=== PATIENT | male | born 1995 | race Caucasian/White ===

== ENCOUNTER 2019-06-02 16:14 | Emergency (ER) | payer BC, OTHER, SELFPAY ==
[2019-06-02 16:24] VITALS: BP 142/75; PULSE 87; RESP 20; TEMP 36.7; O2SAT 99
--- NOTE | 2019-06-02 17:23 | ED.URI ---
HPI - URI/Sore Throat General Chief Complaint: Upper Respiratory Infection Stated Complaint: cough with pain Time Seen by Provider: 06/02/19 17:13 Source: patient and RN notes reviewed Mode of arrival: ambulatory Limitations: no limitations History of Present Illness HPI Narrative: 23-year-old male presents with concern for cough, mid chest pain with coughing. Denies chest pain at rest. Denies shortness of breath, diaphoresis. Reports his girlfriend was recently diagnosed with influenza. Denies taking any medications for his symptoms. MD elicited complaint: cough Related Data Home Medications Medication Instructions Recorded Confirmed budesonide 3 mg PO DAILY 06/02/19 06/02/19 cetirizine [Zyrtec] 10 mg PO DAILY 06/02/19 06/02/19 fluticasone furoate-vilanterol 1 inh INHALATION DAILY 06/02/19 06/02/19 [Breo Ellipta] nystatin 100,000 unit PO QID 06/02/19 06/02/19 topiramate 50 mg PO BID 06/02/19 06/02/19 Allergies Allergy/AdvReac Type Severity Reaction Status Date / Time No Known Allergies Allergy Verified 06/02/19 16:48 Review of Systems Review of Systems: Narrative: CONSTITUTIONAL: Denies malaise, chills, sweats, or fever. EYES: Denies visual changes, redness, or discharge. ENT: Reports rhinorrhea. Denies congestion, sinus pain, otalgia and sore throat. CARDIOVASCULAR: Denies chest pain, palpitations, or edema. RESPIRATORY: Reports cough, mid chest pain with coughing. Denies dyspnea. GASTROINTESTINAL: Denies abdominal pain, nausea, vomiting, diarrhea SKIN: Denies rash or itching. MUSCULOSKELETAL: Denies myalgia. NEUROLOGIC: Denies headache. All systems reviewed & are unremarkable except as noted in HPI and below PMFSH Comments At time of signature, agree with nursing past medical, surgical, social and family history. There is no relevant family history pertinent to the presenting complaint Exam Narrative: Exam Narrative: GENERAL: Well-appearing, well-nourished, and in no acute distress. HEAD: Normocephalic EYES: PERRLA, conjunctivae clear ENT: Nares clear, turbinates erythematous, clear discharge. Mucous membranes moist. TM pearly malagon with sharp light reflex bilaterally; no tragal tenderness. Oropharynx not erythematous without lesions. Tonsils not enlarged and without exudate, no drooling, no hoarseness, no trismus. NECK: Supple. No lymphadenopathy CHEST: Clear to auscultation, breath sounds equal. No wheezing, rhonchi, rales, or stridor. No respiratory distress, speaks in full sentences. HEART: Regular rate and rhythm. No murmur heard. Normal peripheral pulses. SKIN: Warm, dry, no rash. NEURO: Alert and oriented x3. PSYCH: Normal mood and affect Course Course Emergency Course: Patient is aware of diagnosis, understands and agrees to treatment plan. Anticipatory guidance given. Patient agrees to follow-up as directed and is aware of reasons to seek care at the emergency department. Portions of this record may have been created with voice recognition software Vital Signs Vital signs: Vital Signs Temperature 98.1 F 06/02/19 16:24 Pulse Rate 87 06/02/19 16:24 Respiratory Rate 20 06/02/19 16:24 Blood Pressure 142/75 H 06/02/19 16:24 Pulse Oximetry 99 06/02/19 16:24 Temperature 98.1 F 06/02/19 16:24 Pulse Rate 87 06/02/19 16:24 Respiratory Rate 20 06/02/19 16:24 Blood Pressure 142/75 H 06/02/19 16:24 Pulse Oximetry 99 06/02/19 16:24 Reviewed. Pt has been instructed to follow up with his primary care provider within the next week regarding his elevated blood pressure today. MDM - URI/Sore Throat MDM Narrative Medical decision making narrative: Differential diagnosis considered: Strep pharyngitis, allergic rhinitis, upper respiratory tract infection, sinusitis, rhinosinusitis, nasopharyngitis. viral pharyngitis, otitis media, otitis externa, pneumonia, bronchitis, viral cough syndrome, viral syndrome, and influenza. Exam findings show no acute concerns or changes; patient
== END 2019-06-02 17:40 | disposition home or self-care (01) ==
PROVIDERS: Emergency Provider Nurse Practitioner; PCP Emergency Medicine
DX: J40 Bronchitis, not specified as acute or chronic (principal); J45.909 Unspecified asthma, uncomplicated; K50.90 Crohn's disease, unspecified, without complications
CPT/HCPCS: 87804; 99213; G0463

== ENCOUNTER 2019-06-22 10:43 | Outpatient (CLI) | payer BC, OTHER, SELFPAY ==
--- NOTE | 2019-06-24 16:14 | WPDHOLTEREM ---
Holter/Event Monitor Holter/Event Monitor Date of procedure: 06/22/19 Procedure Type: 48 hour holter monitor Indications: Palpitations Conclusion: 1. 48 hour holter monitor on 06/22/19. 2. Underlying rhythm is sinus rhythm with sinus arrhythmia. HR range 42-132 bpm; average HR 74 bpm. 3. No premature supraventricular complexes. No supraventricular tachycardia. 4. There is one premature ventricular complex. No ventricular tachycardia. 5. No sinoatrial or atrioventricular blocks. No significant pauses greater than 2 seconds. 6. Patient reports symptoms of heart felt weird, chest pain which demonstrate sinus rhythm, HR range 57-103 bpm.
== END 2019-06-22 10:44 | disposition home or self-care (01) ==
PROVIDERS: PCP Emergency Medicine; Visit Provider Internal Medicine Cardiovascular Disease
DX: R00.2 Palpitations (principal)
CPT/HCPCS: 93225; 93226

== ENCOUNTER → 2019-11-18 14:46 | Outpatient (CLI) | payer BC, OTHER, SELFPAY ==
--- NOTE | ~2019-11-18 | US_ITS ---
EXAMINATION: US soft tissue head and neck DATE: 11/18/2019 14:58 INDICATION: Left neck swelling, lump, and pain. TECHNIQUE: Multiple grayscale and Doppler ultrasound images of the left neck were obtained. COMPARISON: None FINDINGS: There is no abnormal mass or lymphadenopathy in the patient's area of concern in left neck. IMPRESSION: 1. No abnormal mass or lymphadenopathy in the patient's area of concern in left neck. Reviewed, dictated and finalized at location B.
== END ==
PROVIDERS: PCP Emergency Medicine; Visit Provider Emergency Medicine
DX: R59.1 Generalized enlarged lymph nodes (principal)
CPT/HCPCS: 76536

== ENCOUNTER 2019-12-02 10:56 | Outpatient (CLI) | payer BC, OTHER, SELFPAY ==
--- NOTE | 2019-12-02 11:07 | EST_ITS ---
Patient Info Name: Teddy Zhang Age: 24 years : 1995 Gender: Male Ht: 74 in Wt: 215 lbs BSA: 2.27 m2 Exam Date: 12/02/2019 11:15 AM Exam Location: [facility] Stress Patient Status: Outpatient Admit Date: 12/02/2019 Staff Ordering Physician: Shawn Daily DO Attending Provider: Shawn Daily DO Exercise Technologist: Ester Banda RDCS Exercise Physician: Shawn Daily DO Exam Type: CA stress test treadmill Study Info Indications R07.9 - Chest pain, unspecified A treadmill exercise stress test was performed. Summary 1. 1. Negative Francisco J exercise stress test for ischemic ST changes by ECG criteria. 2. 2. Good functional capacity, achieving 12 METs of workload. 3. 3. Hypertensive response to exercise. 4. 4. Appropriate HR response to exercise. 5. 5. Appropriate HR recovery at 1 minute post exercise. 6. 6. No imaging with stress testing. 7. 7. Patient informed of the above results. Protocol: Francisco J Stress ECG Details Stage: REST Duration (min): 6 min : 27 sec Speed (mph): 0.0 Grade (%): 0 HR (bpm): 95 SBP (mmHg): 125 DBP (mmHg): 76 METS: --- Stage: REST Duration (min): 17 min : 49 sec Speed (mph): 0.0 Grade (%): 0 HR (bpm): 103 SBP (mmHg): 125 DBP (mmHg): 76 METS: --- Stage: STAGE 1 Duration (min): 1 min : 0 sec Speed (mph): 1.7 Grade (%): 10 HR (bpm): 117 SBP (mmHg): 125 DBP (mmHg): 76 METS: --- Stage: STAGE 1 Duration (min): 2 min : 0 sec Speed (mph): 1.7 Grade (%): 10 HR (bpm): 119 SBP (mmHg): 125 DBP (mmHg): 76 METS: --- Stage: STAGE 1 Duration (min): 3 min : 0 sec Speed (mph): 1.7 Grade (%): 10 HR (bpm): 116 SBP (mmHg): 123 DBP (mmHg): 67 METS: --- Stage: STAGE 2 Duration (min): 1 min : 0 sec Speed (mph): 2.5 Grade (%): 12 HR (bpm): 129 SBP (mmHg): 123 DBP (mmHg): 67 METS: --- Stage: STAGE 2 Duration (min): 2 min : 0 sec Speed (mph): 2.5 Grade (%): 12 HR (bpm): 128 SBP (mmHg): 140 DBP (mmHg): 66 METS: --- Stage: STAGE 2 Duration (min): 3 min : 0 sec Speed (mph): 2.5 Grade (%): 12 HR (bpm): 133 SBP (mmHg): 140 DBP (mmHg): 66 METS: --- Stage: STAGE 3 Duration (min): 1 min : 0 sec Speed (mph): 3.4 Grade (%): 14 HR (bpm): 145 SBP (mmHg): 157 DBP (mmHg): 65 METS: --- Stage: STAGE 3 Duration (min): 2 min : 0 sec Speed (mph): 3.4 Grade (%): 14 HR (bpm): 152 SBP (mmHg): 157 DBP (mmHg): 65 METS: --- Stage: STAGE 3 Duration (min): 3 min : 0 sec Speed (mph): 3.4 Grade (%): 14 HR (bpm): 155 SBP (mmHg): 184 DBP (mmHg): 59 METS: --- Stage: STAGE 4 Duration (min): 1 min : 0 sec Speed (mph): 4.2 Grade (%): 16 HR (bpm): 170 SBP (mmHg): 184 DBP (mmHg): 59 METS: --- Stage: STAGE 4 Duration
== END 2019-12-02 10:57 | disposition home or self-care (01) ==
PROVIDERS: PCP Emergency Medicine; Visit Provider Internal Medicine Cardiovascular Disease
DX: R07.9 Chest pain, unspecified (principal)
CPT/HCPCS: 93017

== ENCOUNTER → 2020-08-09 16:08 | Outpatient (CLI) | payer BC, OTHER, SELFPAY ==
--- NOTE | ~2020-08-09 | US_ITS ---
EXAMINATION: US thyroid DATE: 08/09/2020 16:29 INDICATION: Goiter. TECHNIQUE: Multiple ultrasound images of the thyroid were obtained. COMPARISON: None. FINDINGS: The right thyroid lobe measures 4.7 x 1.0 x 1.3 cm. The left thyroid lobe measures 5.3 x 1.2 x 1.4 c m. There is normal echotexture and echogenicity throughout the thyroid gland. No discrete nodules id entified. Normal vascular flow is present. IMPRESSION: 1. Normal pelvis. Reviewed, dictated and finalized at location A. IMPRESSION: 1. Normal pelvis.
== END ==
PROVIDERS: PCP Emergency Medicine; Visit Provider Emergency Medicine
DX: E04.9 Nontoxic goiter, unspecified (principal)
CPT/HCPCS: 76536

== ENCOUNTER → 2020-09-12 11:26 | Outpatient (CLI) | payer BC, OTHER, SELFPAY ==
--- NOTE | ~2020-09-12 | CT_ITS ---
EXAMINATION: CT soft tissue neck w con DATE: 09/12/2020 11:48 INDICATION: Anterior neck mass. TECHNIQUE: Computed tomography (CT) of the neck was performed with 75 mL Omnipaque-350 intravenous co ntrast. Automated exposure control and iterative reconstruction technique were employed. The dose-cat gth product was 429.47 mGy-cm. COMPARISON: Thyroid ultrasound 08/09/2020 FINDINGS: There is asymmetric enlargement of the left strap muscles. A skin marker overlies this area . The thyroid is normal with prominent left-sided pyramidal lobe. A left supraclavicular node measure s 13 x 10 mm. The cervical carotid arteries are normal. There is mucosal thickening in the paranasal sinuses with dependent fluid in left maxillary sinus. The spine is unremarkable. IMPRESSION: 1. Asymmetric enlargement of the left strap muscles. 2. Borderline enlarged left supraclavicular lymph node, likely reactive. Reviewed, dictated and finalized at location A.
[2020-09-12 11:40] LABS: Estimated Glomerular Filt Rate > 60
== END ==
PROVIDERS: Visit Provider Otolaryngology
DX: R22.1 Localized swelling, mass and lump, neck (principal)
CPT/HCPCS: 70491; Q9967

== ENCOUNTER 2021-12-19 16:45 | Outpatient (CLI) | payer BC, OTHER, SELFPAY ==
--- NOTE | 2021-12-19 16:52 | ECG_ITS ---
Measurements Intervals [place] Rate: 66 P: 13 NE: 137 QRS: 70 QRSD: 102 T: 27 QT: 368 QTc: 387 Interpretive Statements SINUS RHYTHM WITH SINUS ARRHYTHMIA BASELINE ARTIFACT- II, III, AVF NORMAL ECG NO PREVIOUS ECG AVAILABLE FOR COMPARISON Electronically Signed On 12-19-2021 21:33:21 CDT by Shawn Daily D.O.
== END 2021-12-19 16:46 | disposition home or self-care (01) ==
LOC: ANHCARD 16:48
PROVIDERS: PCP Emergency Medicine; Visit Provider Anesthesiology
DX: Z01.810 Encounter for preprocedural cardiovascular examination (principal); I10 Essential (primary) hypertension
CPT/HCPCS: 93005

== ENCOUNTER 2021-12-25 00:31 | Day surgery (SDC) | payer BC, OTHER, SELFPAY ==
[2021-12-18 16:33] VITALS: BMI 26.3
--- NOTE | 2021-12-18 17:05 | PC.NURSE ---
Report to the Outpatient Waiting Room, entrance under the green pavilion located off [facility], at 1000 on 12-25-21. OR Time: 1200. Time changes happen often and if your time is changed the preop area will call you the afternoon before. - You and your visitor will be asked to self-screen and do not enter if you have any COVID symptoms. - Only one visitor and NO children visitors are allowed at this time. - The patient visitor is requested to leave or wait in car when not with patient due to restrictions. - A mask is required within the hospital. Patients may have clear liquids (water, carbonated beverages, clear teas, apple juice) until 3 hours prior to surgery with a maximum of 20 ounces. 0900 - No food from midnight until time of surgery - Infants may have breast milk until 4 hours before surgery, formula 6 hours prior to surgery. - Children will be allowed to drink immediately following surgery. If applicable, please bring a bottle or sippy cup to assist with drinking. Juice, water, soda, and popsicles are readily available. For infants on formula, please bring formula the day of surgery. Pacifiers are allowed. Take the following medications with a SIP of water the morning of surgery: metoprolol Medications to discontinue per physician: vitamins and supplements Date to take last dose: 12-22-21 Please no make-up, nail frisian, hairspray, perfume, deodorant, or body powder the day of surgery. No jewelry (including any body piercings) or valuables the day of surgery, leave them at home. Please take a shower or bath the night before, or the morning of, surgery with an antibacterial soap. Wear comfortable, loose fitting clothing. Children are encouraged to wear pajamas. - Jewelry must be removed prior to entering the operating room. Rings and piercings that are not removed may be cut off. - The hospital will not accept responsibility for valuables. - Please leave all valuables, including medications, at home the day of surgery. Bring rescue inhalers day of surgery if applicable. If you are going home after surgery, a licensed route salesman and driver must drive you home. - NO public transportation without another adult. - We recommend that an adult stay with you for 24 hours following discharge. - We also recommend that you do not drive, make important decision, drink alcoholic beverages, or take any drugs that were not prescribed by your health care provider for at least 24 hours after your discharge time. For Pediatric surgeries, we recommend two adults accompany the child home (only one inside the building at this time). Follow any additional instructions given to you from your surgeon. If you or anyone in your household have experienced Covid symptoms in the past week, please notify your surgeon or the nurse liaison at the phone number below for possible testing. Telephone instructions given to Dipak Zhang and asked if any additional questions and then verbalized understanding. Patient advised to call surgeon office or pre surgery nurse liaison [phone] if any additional questions.
--- NOTE | 2021-12-24 12:16 | WPDANESEPPF ---
Anes - Initial Pre Proc Eval Procedure: Operation Date: 12/25/21 12:00 Proposed Procedures p Rectal Exam Under Anesthesia, Possible Sphincterotomy - Jesus Keller DO Date/Time: 12/24/21 12:16 Surgeon: Jesus Keller DO Pre Op Diagnosis: rectal pain Patient Data Age: 26 Gender: M Height: 1.88 m Weight: 92.99 kg Allergies Allergy/AdvReac Type Severity Reaction Status Date / Time No Known Allergies Allergy Verified 12/25/21 10:17 Home Medications Medication Instructions Recorded Confirmed Type fluticasone furoate 100 1 inh inhalation DAILY 03/31/19 12/25/21 History mcg-vilanterol 25 mcg/dose inhalation powder (Breo Ellipta) ustekinumab 90 mg/mL subcutaneous 90 mg subcut .8 wks 05/05/19 12/25/21 History syringe (Stelara) cetirizine 10 mg tablet (Zyrtec) 10 mg PO DAILY 06/02/19 12/25/21 History metoprolol succinate 25 mg See Rx Instructions .Route 09/24/21 12/25/21 Rx tablet,extended release 24 hr .COMPLEX #30 tabs albuterol sulfate 90 mcg/actuation 2 puff inhalation Q4-6H PRN 12/18/21 12/18/21 History aerosol inhaler wheezing/ SOB potassium 99 mg tablet 99 mg PO DAILY 12/18/21 12/25/21 History zinc 50 mg tablet 50 mg PO DAILY 12/18/21 12/25/21 History Patient hx anesthesia problems: none Family hx anesthesia problems: none Results Review: All pre-operative results and documents have been reviewed as part of the pre-operative evaluation. [facility] Past Medical History Medical History Abnormal heart rhythm Anemia Asthma Crohn disease History of migraine headaches Ulcer Surgical History Surgical History H/O colonoscopy Family History Family History Grandparent Hypertension Diabetes mellitus Ovarian cancer Lung cancer Social History Social History Years smoked: 2 Smoking status: Former smoker Tobacco type: cigarettes, cigars and e-cigarettes/vaping Second hand tobacco smoke exposure: No Alcohol intake: current Alcohol use details: occasionally: beer Substance use: never Substance use type: does not use Living arrangements: alone Additional occupation/education comments: Construction Spiritual care concerns: No Anes - Eval Final PreProcedure Day of Procedure 12/24/21 12:16 Patient weight: overweight Heart: regular rate and rhythm Lungs: clear to auscultation and normal air movement Airway: Mallampati scale class II Neurological: alert and oriented Last oral intake: >/= 8 hours ASA classification: II Emergent: no Anesthetic plan: proceed Anesthesia type and monitoring: general LMA and ETT Results Review: All pre-operative results and documents have been reviewed as part of the pre-operative evaluation. Informed Consent: The patient's anesthetic plan and its attendant risks and benefits were discussed with the patient/family/POA. Questions were solicited and answers provided to the satisfaction of the patient/family/POA.
[2021-12-25] VITALS (9 sets, daily range): BP systolic 111–125; BP diastolic 72–84; PULSE 68–89; RESP 16–20; TEMP 36.2–37.2; O2SAT 97–100
--- NOTE | 2021-12-25 11:02 | PM.IMHP ---
H&P: HPI History of Present Illness Date/Time: 12/25/21 11:02 Chief Complaint: Rectal pain Narrative: This is a 26-year-old man who presents for rectal exam under anesthesia with possible lateral internal sphincterotomy. He reports no changes since last seen in the office. Review of Systems Review of Systems: All systems reviewed & are unremarkable except as noted in HPI and below Constitutional: Constitutional: Denies chills, Denies fever(s), Denies headache(s) and Denies weight loss Eyes: Eyes: Denies change in vision ENT: Denies dizziness, Denies headache(s), Denies neck mass and Denies throat swelling Cardiovascular: Cardiovascular: Denies chest pain, Denies lightheadedness and Denies dyspnea Respiratory: Respiratory: Denies cough, Denies dyspnea and Denies wheezing Gastrointestinal: Gastrointestinal: Denies abdominal pain, Denies change in bowel habits, Denies nausea and Denies vomiting Genitourinary: Genitourinary: Denies hematuria and Denies dysuria Musculoskeletal: Musculoskeletal: Reports as per HPI Integumentary/Breasts: Skin/Breast: Reports as per HPI Neurologic: Denies dizziness and Denies headache(s) Allergic/Immunologic: Allergic/Immunologic: Denies throat swelling and Denies wheezing PMFSH Past Medical History Medical History Abnormal heart rhythm Anemia Asthma Crohn disease History of migraine headaches Ulcer Surgical History Surgical History H/O colonoscopy Family History Family History Grandparent Hypertension Diabetes mellitus Ovarian cancer Lung cancer Social History Social History Years smoked: 2 Smoking status: Former smoker Tobacco type: cigarettes, cigars and e-cigarettes/vaping Second hand tobacco smoke exposure: No Alcohol intake: current Alcohol use details: occasionally: beer Substance use: never Substance use type: does not use Living arrangements: alone Additional occupation/education comments: Construction Spiritual care concerns: No Meds Home Medications and Allergies Home Medications Medication Instructions Recorded Confirmed Type fluticasone furoate 100 1 inh inhalation DAILY 03/31/19 12/25/21 History mcg-vilanterol 25 mcg/dose inhalation powder (Breo Ellipta) ustekinumab 90 mg/mL subcutaneous 90 mg subcut .8 wks 05/05/19 12/25/21 History syringe (Stelara) cetirizine 10 mg tablet (Zyrtec) 10 mg PO DAILY 06/02/19 12/25/21 History metoprolol succinate 25 mg See Rx Instructions .Route 09/24/21 12/25/21 Rx tablet,extended release 24 hr .COMPLEX #30 tabs albuterol sulfate 90 mcg/actuation 2 puff inhalation Q4-6H PRN 12/18/21 12/18/21 History aerosol inhaler wheezing/ SOB potassium 99 mg tablet 99 mg PO DAILY 12/18/21 12/25/21 History zinc 50 mg tablet 50 mg PO DAILY 12/18/21 12/25/21 History Allergies Allergy/AdvReac Type Severity Reaction Status Date / Time No Known Allergies Allergy Verified 12/25/21 10:17 Exam Const: General: no acute distress and alert Orientation/consciousness: patient oriented x3 HENMT: Head: normocephalic and atraumatic Ears: hearing grossly normal bilaterally General nose exam: Normal nares present Mouth: Yes Normal oral and palatal mucosa present Eyes: Periorbital: periorbital findings normal Sclera: sclerae normal EOM: EOMs intact bilaterally Neck: Neck: normal visual inspection, no lymphadenopathy and trachea midline Chest: Chest palpation & inspection: normal inspection of the chest Resp: Effort & Inspection: normal respiratory effort Auscultation: clear to auscultation bilaterally Cardio: Jugular venous distension: no JVD Rate: regular rate Rhythm: regular rhythm Heart sounds: S1 normal heart sound present and S2 normal heart sound pre
[2021-12-25] MEDS: LACTATED RINGERS 1,000 ML 30 ML IV CONT (11:13)
--- NOTE | 2021-12-25 11:16 | WPDHPUPDATE1 ---
History and Physical Update Update Date/Time: 12/25/21 11:16 History and Physical has been reviewed, including an updated exam of the patient. There are NO changes in the patient's condition. Risks, benefits, and alternatives have been discussed and questions answered. Patient agrees to proceed with procedure.
[2021-12-25] MEDS: KETOROLAC 15 MG/ML VIAL (*BKC) IV PUSH (11:18)
[2021-12-25] MEDS: ceFAZolin 2 GM/D5W 50 ML 2 GM/50 ML BAG IVPB (11:24)
--- NOTE | 2021-12-25 12:16 | W.PM.PROC2 ---
Procedure Note - Detailed Date of Procedure 12/25/21 Pre-op Diagnosis rectal pain Post-op Diagnosis Other (Posterior midline anal fissure) Procedure Performed Rectal exam under anesthesia with left lateral internal sphincterotomy Surgeon Jesus Keller, DO Anesthesia General and Local (Exparel) Indications This is a 26-year-old man who presented with frequent rectal pain. He was having intermittent rectal pain at 1st and this was mild and controlled with stool softeners. His pain became more frequent and he was having frequent spasms and pain with bowel movements. A fissure was suspected and patient was tender with digital rectal exam. Discussions were made with the patient about treatment options and decision was made to proceed with rectal exam under anesthesia with possible sphincterotomy. Findings Rectal exam under anesthesia was performed. 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 This did bleed slightly with anoscopy. No other rectal or anal abnormalities were identified. A left lateral internal anal sphincterotomy was performed. No specimens were obtained for pathology. Description of Procedure Procedure as well as risks, benefits, and alternatives were discussed with the patient. Written consent was obtained and placed in chart prior to procedure. Patient was brought back to surgical suite. He was placed supine on his hospital stretcher. Time-out was done to confirm patient and procedure. He was then intubated by the anesthesia department. He was then repositioned to prone sabas-knife position on the operating table. His perirectal region was prepped and draped in sterile fashion using Betadine prep. Digital rectal exam was initially performed. The [place] anoscope was then inserted in the anal rectal canal was carefully inspected. Exparel was infiltrated locally around the perirectal tissue. The posterior midline anal fissure was identified. The anoscope was then removed and a Fansler anoscope was then inserted and the left lateral intersphincteric groove was identified. An incision was made directly over the internal sphincter muscle fibers using a 15 blade scalpel. A curved hemostat was used to identify isolate some of the internal sphincter muscle fibers. The sphincter muscles fibers were then transected with electrocautery. This allowed the sphincter muscle to relax enough to promote healing. Electrocautery was used for hemostasis. One final inspection was made around the area no other abnormalities were noted. The area was irrigated with sterile saline. The anoderm and anal mucosa was then reapproximated using 3-0 chromic simple interrupted sutures. Xeroform gauze was then applied followed by fluff gauze, ABD pads, and mesh underwear. The patient was then awakened from anesthesia, extubated, and transferred to recovery. Estimated Blood Loss 5 Complications No immediate complications Condition Stable Disposition Same day [facility] Billing Surgery - Charge Forward: Surgery Billing
== END 2021-12-25 14:00 | disposition home or self-care (01) ==
PROVIDERS: PCP Emergency Medicine; Visit Provider Surgery
PROC: (CPT 46200; principal; 2021-12-25 12:00)
DX: K60.2 Anal fissure, unspecified (principal); K50.90 Crohn's disease, unspecified, without complications; D64.9 Anemia, unspecified; J45.909 Unspecified asthma, uncomplicated; Z87.891 Personal history of nicotine dependence; Z79.51 Long term (current) use of inhaled steroids
CPT/HCPCS: 46200; 93005; A9270; C9290; J0131; J0330; J0690; J1100; J1885; J2250; J2405; J2704; J3010; J7120

== ENCOUNTER 2022-10-28 19:13 | Emergency (ER) | payer BC, SELFPAY ==
[2022-10-28] VITALS (18 sets, daily range): BP systolic 112–155; BP diastolic 57–82; PULSE 59–102; RESP 13–22; TEMP 36.6; O2SAT 97–100
--- NOTE | ~2022-10-28 | XR_ITS ---
EXAMINATION: XR chest 2V 10/28/2022 19:35 INDICATION: Chest pain with palpitations PROCEDURE: 2 view chest COMPARISON: 03/04/2019 FINDINGS: The lungs are clear. The cardiomediastinal silhouette is within normal limits. There are no pleural effusions. There is no pneumothorax suspected. IMPRESSION: 1: NO ACUTE CARDIOPULMONARY DISEASE. Reviewed, dictated and finalized at location A.
--- NOTE | 2022-10-28 19:15 | ECG_ITS ---
Measurements Intervals [place] Rate: 79 P: 51 PA: 140 QRS: 79 QRSD: 109 T: 33 QT: 355 QTc: 409 Interpretive Statements SINUS RHYTHM WITH SINUS ARRHYTHMIA NORMAL ECG COMPARED TO ECG 12/19/2021 16:56:55 NO SIGNIFICANT CHANGES Electronically Signed On 10-28-2022 20:08:26 CDT by Shawn Daily D.O.
[2022-10-28 19:34] LABS: Basophils Absolute Auto 0.1 K/mm3 (0.0-0.1); Basophils Percent Auto 1.1 % (0.2-1.2); Eosinophils Absolute Auto 0.2 K/mm3 (0-0.3); Eosinophils Percent Auto 2.5 % (0-4.4); Hematocrit 48.8 % (42.0-52.0); Hemoglobin 16.2 g/dL (14.0-18.0); Immature Granulocyte Absolute 0.02 K/mm3 (0.00-0.031); Immature Granulocyte Percent A 0.2 % (0-0.5); Lymphocytes Absolute Auto 2.79 K/mm3 (0.9-3.2); Lymphocytes Percent Auto 29.8 % (18.3-44.2); Mean Corpuscular HGB Conc 33.2 g/dl (32-36); Mean Corpuscular Hemoglobin 30.1 pg (26-34); Mean Corpuscular Volume 90.5 fl (80-100); Mean Platelet Volume 10.5 fl (7.4-10.4); Monocytes Absolute Auto 0.9 K/mm3 (0.1-0.6); Monocytes Percent Auto 9.1 % (2.6-8.5); Neutrophils Absolute Auto 5.4 K/mm3 (1.3-6.7); Neutrophils Percent Auto 57.3 % (45.5-73.1); Platelet Count Result 263 k/mm3 (150-375); Red Blood Count 5.39 M/mm3 (4.6-6.20); Red Cell Distribution Width 11.7 % (11.5-14.5); White Blood Count 9.4 K/mm3 (4.5-10.0)
[2022-10-28 19:47] LABS: INR 1.1; Prothrombin Time 14.3 Seconds (11.1-14.7)
[2022-10-28 19:50] LABS: Partial Thromboplastin Time 36.2 SECONDS (22.3-36.8)
[2022-10-28 19:51] LABS: Alanine Aminotransferase 39 U/L (6-50); Albumin Level 4.7 g/dL (3.5-5.1); Alkaline Phosphatase 37 U/L (38-126); Anion Gap 9 mmol/L (8-16); Aspartate Amino Transferase 30 U/L (17-59); Bilirubin,Total 0.9 mg/dL (0.2-1.3); Blood Urea Nitrogen 19 mg/dL (9-20); Calcium 9.4 mg/dL (8.4-10.2); Carbon Dioxide 30 mmol/L (22-30); Chloride 100 mmol/L (98-107); Estimated CRCL calculation 142 ml/min; Estimated Glomerular Filt Rate > 60; Glucose 96 mg/dL (65-110); Lipase 67 U/L (23-300); Potassium 4.2 mmol/L (3.4-5.0); Sodium 139 mmol/L (137-145)
[2022-10-28 20:02] LABS: Troponin I < 0.012 ng/mL (0.000-0.034)
[2022-10-28] MEDS: ASPIRIN 81 MG CHEWABLE TABLET 324 MG PO (20:12)
--- NOTE | 2022-10-28 20:32 | ED.CHESTPAIN ---
HPI - Chest Pain General Chief Complaint: Chest Pain <Errol Hamilton MD - Last Filed: 11/07/22 07:23> Stated Complaint: chest pain x 3 days <Errol Hamilton MD - Last Filed: 11/07/22 07:23> Time Seen by Provider: 10/28/22 20:15 <Errol Hamilton MD - Last Filed: 11/07/22 07:23> History of Present Illness HPI narrative: 27-year-old male presented emergency department for evaluation of intermittent chest wall pain. Patient states the pain has been bothering him over the last few days. Patient did have some exertional chest pain during sexual activity. Patient states the pain is located in the center chest and is now worsened with movement. Patient denies any associated shortness of breath. Patient does have a history of Crohn's and hypertension and does take metoprolol for his blood pressure. <Errol Hamilton MD - Last Filed: 11/07/22 07:23> Related Data Home Medications: Home Medications Medication Instructions Recorded Confirmed fluticasone furoate 100 1 inh inhalation DAILY 03/31/19 01/24/22 mcg-vilanterol 25 mcg/dose inhalation powder (Breo Ellipta) ustekinumab 90 mg/mL subcutaneous 90 mg subcut .8 wks 05/05/19 01/24/22 syringe (Stelara) cetirizine 10 mg tablet (Zyrtec) 10 mg PO DAILY 06/02/19 01/24/22 albuterol sulfate 90 mcg/actuation 2 puff inhalation Q4-6H PRN 12/18/21 01/24/22 aerosol inhaler wheezing/ SOB potassium 99 mg tablet 99 mg PO DAILY 12/18/21 01/24/22 zinc 50 mg tablet 50 mg PO DAILY 12/18/21 01/24/22 <Errol Hamilton MD - Last Filed: 11/07/22 07:23> Allergies/Adverse Reactions: Allergies Allergy/AdvReac Type Severity Reaction Status Date / Time No Known Allergies Allergy Verified 01/23/22 14:39 <Errol Hamilton MD - Last Filed: 11/07/22 07:23> Review of Systems Review of Systems: All systems reviewed & are unremarkable except as noted in HPI and below <Errol Hamilton MD - Last Filed: 11/07/22 07:23> PMFSH Past Medical History Medical History: Medical History Abnormal heart rhythm Anemia Asthma Crohn disease History of migraine headaches Ulcer <Errol Hamilton MD - Last Filed: 11/07/22 07:23> Surgical History Surgical History: Surgical History H/O colonoscopy Hx of rectal sphincterotomy Left lateral internal sphincterotomy on 12/25/21. <Errol Hamilton MD - Last Filed: 11/07/22 07:23> Family History Family History: Family History Grandparent Hypertension Diabetes mellitus Ovarian cancer Lung cancer <Errol Hamilton MD - Last Filed: 11/07/22 07:23> Social History Social History: Social History Years smoked: 2 Smoking status: Former smoker Tobacco type: cigarettes, cigars and e-cigarettes/vaping Second hand tobacco smoke exposure: No Alcohol intake: current Alcohol use details: occasionally: beer Substance use: never Substance use type: does not use Living arrangements: alone Occupation/Education: occupation Additional occupation/education comments: Construction Spiritual care concerns: No <Errol Hamilton MD - Last Filed: 11/07/22 07:23> Exam Narrative: APPEARANCE: Well appearing, no pain, no distress, well-nourished. HEAD: normocephalic, atraumatic. EYES: PERRLA/EOMI, conjunctivae clear. NOSE: Normal no drainage EARS:TMS clear with good light reflex. THROAT: Pharynx clear, no exudate. NECK: Supple. No adenopathy, no masses. RESPIRATORY: Airway patent, respirations nonlabored. Clear to auscultation bilaterally, no rales, rhonchi, wheezing. CARDIOVASCULAR: Regular rate and rhythm without murmurs rubs or gallops. ABDOMINAL: Soft, nontender, nondistended, normal bowel sounds MUSCULOSKELETAL: Reproducible chest wall tenderness to
[2022-10-28] MEDS: KETOROLAC 30 MG/ML VIAL (*BKC) IM (22:35)
[2022-10-28 23:13] LABS: Troponin I < 0.012 ng/mL (0.000-0.034)
== END 2022-10-28 23:40 | disposition home or self-care (01) ==
PROVIDERS: Emergency Medicine; Emergency Provider Emergency Medicine; PCP Emergency Medicine
DX: R07.9 Chest pain, unspecified (principal); D64.9 Anemia, unspecified; J45.909 Unspecified asthma, uncomplicated; K50.90 Crohn's disease, unspecified, without complications
CPT/HCPCS: 36415; 71046; 80053; 83690; 84484; 85025; 85610; 85730; 93005; 96372; 99284; A9270; J1885